=== PATIENT | female | born 1975 | race Two or more races ===

== ENCOUNTER 2017-07-31 03:57 | Emergency (ER) | payer OTHER ==
[~2017-07-31] VITALS: Ht 170.2 cm; Wt 72.6 kg
--- NOTE | 2017-07-31 04:05 | NUR ---
PT BIBA FROM [facility] FOR LOW BP- 109/60. PT ASYMPTOMATIC. S/P LAP BAND SX AND WAS BEING MONITORED OVERNIGHT AT SX CENTER. NAD NOTED. SEEN BY MD FOR EVAL. VSS. 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 SAFETY AND COMFORT MEASURES PROVIDED. WILL MONITOR.
--- NOTE | 2017-07-31 04:10 | NUR ---
CALLED [facility] AT [phone] AND LEFT A MESSAGE FOR DR. SHANTE BOYCE.
--- NOTE | 2017-07-31 05:00 | NUR ---
WAITING FOR FAMILY MEMBER FOR CAKE [employer].
--- NOTE | 2017-07-31 05:30 | NUR ---
IV removed. Catheter intact and site benign. Pressure and 4x4 applied to site. No bleeding noted.
[2017-07-31 06:02] VITALS: BP 118/62
== END 2017-07-31 06:02 | disposition home or self-care (01) ==
LOC: ER 03:59
DX: I95.9 Hypotension, unspecified (principal); Z98.84 Bariatric surgery status
CPT/HCPCS: A4606; J7030; Z7610